=== PATIENT | female | born 1965 | race Asian ===

== ENCOUNTER 2017-08-10 08:40 | Outpatient (CLI) | payer BC | END 2017-08-10 08:41 | disposition home or self-care (01) | LOC: BICMAMMO 08:40 | PROVIDERS: ATTEND Internal Medicine | DX: N63.11 Unspecified lump in the right breast, upper outer quadrant (principal) | CPT/HCPCS: G0279 ==

== ENCOUNTER 2019-12-07 15:24 | Outpatient (CLI) | payer BC ==
--- NOTE | 2019-12-07 15:53 | MMO ---
Bilateral MAMMO Bilat Screen [facility]. CLINICAL HISTORY: Patient is 54 years old and is seen for screening. The patient has no family history of breast cancer. The patient has no personal history of cancer. The patient has a history of right Excisional Biopsy in 1983 - benign. VIEWS: The views performed were: bilateral craniocaudal with tomosynthesis and bilateral mediolateral oblique with tomosynthesis. FILMS COMPARED: The present examination has been compared to prior imaging studies performed at [facility] on 04/10/2014, 05/03/2015, 01/06/2017 and 08/10/2017. This study has been interpreted with the assistance of computer-aided detection. MAMMOGRAM FINDINGS: There are scattered fibroglandular densities. Asymmetric nodular density anterior mid right breast seen on mlo view only. Recommend diagnostic exam. In the left breast, there are no suspicious masses, calcifications or areas of architectural distortion. IMPRESSION: FINDING IN THE RIGHT BREAST REQUIRES ADDITIONAL EVALUATION. ADDITIONAL IMAGING. THE RESULTS OF THIS EXAM WERE SENT TO THE PATIENT. ACR BI-RADS Category 0 - Incomplete: Need additional imaging evaluation. [facility] will notify the patient of the need for additional imaging services. MAMMOGRAPHY NOTE: 1. A negative mammogram report should not delay a biopsy if a dominant of clinically suspicious mass is present. 2. Approximately 10% to 15% of breast cancers are not detected by mammography. 3. Adenosis and dense breasts may obscure an underlying neoplasm. Reported by: ZACH HAYES MD Electonically Signed: [id number]
== END 2019-12-07 15:25 | disposition home or self-care (01) ==
LOC: BICMAMMO 15:24
PROVIDERS: ATTEND Obstetrics & Gynecology
DX: Z12.31 Encounter for screening mammogram for malignant neoplasm of breast (principal); R92.8 Other abnormal and inconclusive findings on diagnostic imaging of breast; Z91.89 Other specified personal risk factors, not elsewhere classified
CPT/HCPCS: 77063; 77067

== ENCOUNTER 2019-12-12 08:42 | Outpatient (CLI) | payer BC ==
--- NOTE | 2019-12-12 09:07 | MMO ---
Right Breast MAMMO Unilat Diag [facility]. CLINICAL HISTORY: Patient is 54 years old and is seen for diagnostic exam. The patient has no family history of breast cancer. The patient has no personal history of cancer. The patient has a history of right Excisional Biopsy in 1983 - benign. VIEWS: The views performed were: right craniocaudal with tomosynthesis; right mediolateral oblique with tomosynthesis; and right mediolateral with tomosynthesis. FILMS COMPARED: The present examination has been compared to prior imaging studies performed at [facility] on 05/03/2015, 01/06/2017, 08/10/2017 and 12/07/2019. This study has been interpreted with the assistance of computer-aided detection. MAMMOGRAM FINDINGS: There are scattered fibroglandular densities. Additional views were performed. The previously seen abnormality is not definitely seen on the current study. There are no suspicious masses, suspicious calcifications, or new areas of architectural distortion. IMPRESSION: THERE IS NO MAMMOGRAPHIC EVIDENCE OF MALIGNANCY. A ROUTINE FOLLOW-UP MAMMOGRAM IN 1 YEAR IS RECOMMENDED. THE RESULTS OF THIS EXAM WERE SENT TO THE PATIENT. ACR BI-RADS Category 2 - Benign finding MAMMOGRAPHY NOTE: 1. A negative mammogram report should not delay a biopsy if a dominant of clinically suspicious mass is present. 2. Approximately 10% to 15% of breast cancers are not detected by mammography. 3. Adenosis and dense breasts may obscure an underlying neoplasm. Reported by: SILVIA DOLAN MD Electonically Signed: [id number]
== END 2019-12-12 08:43 | disposition home or self-care (01) ==
LOC: BICMAMMO 08:42
PROVIDERS: ATTEND Obstetrics & Gynecology
DX: R92.2 Inconclusive mammogram (principal)
CPT/HCPCS: G0279